=== PATIENT | female | born 1980 | race Caucasian/White ===

== ENCOUNTER 2016-10-05 05:54 | Day surgery (SDC) | payer OTHER ==
[~2016-10-05] VITALS: Ht 165.1 cm; Wt 61.2 kg
--- NOTE | ~2016-10-05 | O ---
[facility] [place] [address] OPERATIVE REPORT Name: NINFA MEDRANO Yamila Room #: 150-3 [facility]..#: [id number] Admission: 10/05/16 Attend Phys: Tigre Lopez MD Discharge: Date of : 78 Report #: [id number] THIS REPORT FOR: //name// CC: FAM unknown Tigre Lopez DATE OF SERVICE: 10/05/2016 PREOPERATIVE DIAGNOSIS: Left maxillary sinusitis with nasal polyposis. POSTOPERATIVE DIAGNOSIS: Left maxillary sinusitis with nasal polyposis. PROCEDURE: 1. Endoscopic left nasal antral window with content removal. 2. Endoscopic left nasal polypectomies. SURGEON: Tigre Lopez M.D. ANESTHESIA: General LMA. INDICATIONS: See H and P. FINDINGS: Large polyp was essentially obstructing in the posterior left nasal passageway of nasal choana. This polyp had its base within the maxillary ostia. Within the maxillary sinus itself was a substantial amount of polypoid mucosa along with what appeared to be a fungal debris. The mucosa of the sinus once her polyps removed is unremarkable. TECHNIQUE: After obtaining consent, she was brought to the operating suite, appropriate time out was performed. General LMA anesthesia was obtained, the bed was turned 90 degrees. Nose was prepped and draped in usual sterile fashion. Cottonoids with Afrin were placed in the left naris for vasoconstriction. A 2 mL of 1% Xylocaine 1:100,000 epinephrine was injected on the anterior face of the left middle turbinate and the left lateral nasal wall of the uncinate process. Cottonoids were removed. A 0 degree scope was used to intubate the nares. The left middle turbinate was medialized with a [place] and the large polyp was identified. The uncinate process was brought forward with double ball and the uncinate process removed with a side biter and a 12 degree microdebrider blade fully exposing the polyp stalk. The stalk was then amputated with a 12 degree microdebrider blade and the polyp that was within the nasal cavity was then grasped with forceps and removed through the nasal passageway and sent for pathology. Switching to a 30- and a 70-degree scope, it was obvious there was still substantial amount of polyposis within the maxillary sinus. Switching to a red 40 blade, the polyps within the maxillary sinus were removed as much as [facility] [address] [place] [address] OPERATIVE REPORT Name: NINFA MEDRANO Room #: 150-3 [facility].#: [id number] Admission: 10/05/16 Attend Phys: Tigre Lopez MD Discharge: Date of : 78 Report #: [id number]. At that point, we did notice the appearance of what appeared to be some fungal debris within the base of the maxillary sinus, which was suctioned free with a curved suction and then irrigated the maxillary sinus and the mucosa otherwise appeared to be unremarkable. It should be noted I did enlarge the antrostomy slightly inferiorly and anteriorly to allow access to the limits of the maxillary sinus. Switching back to 0 degree scope, the nasal passage was inspected and found to be healthy. There was no active bleeding noted. A single piece of PosiSep was then placed between the middle turbinate and the lateral nasal wall inflated with saline. Nasopharynx was suctioned free of secretion. She was sent to recovery in stable condition. ESTIMATED BLOOD LOSS: Minimal. By: [id number] Tigre Lopez MD /nt
--- NOTE | ~2016-10-05 | EKG ---
[address] [address] ELECTROCARDIOGRAM REPORT Name: NINFA MEDRANO Room #: 150-3 [facility]#: [id number] Admission: 10/05/16 Attend Phys: Tigre Lopez MD Discharge: Date of : 78 Report #: [id number] THIS REPORT FOR: //name// [facility] Test Date: 2016-10-05 Test Time: 08:52:21 Pat Name: NINFA MEDRANO Department: Room: Gender: F Web Site Specialist: YARELIS : 1980 Requested By: Tigre Lopez Order Number: [id number] MD: Duy Bridges Measurements Intervals [place] Rate: 57 P: 54 CO: 151 QRS: 34 QRSD: 86 T: 9 QT: 408 QTc: 398 Interpretive Statements Sinus rhythm No previous ECG available for comparison Electronically Signed On 10-08-2016 8:25:33 CDT by Duy Bridges [email or web address] <ELECTRONICALLY SIGNED> By: Duy Bridges MD 10/08/16 0825 [id number] [id number] Duy Bridges MD /ALEC
--- NOTE | ~2016-10-05 | S ---
[facility] [address] [place] [address] SURGICAL PATH RPT PROCEDURE Name: NINFA MEDRANO Room #: 150-3 [facility] M.R.#: [id number] Admission: 10/05/16 Date of : 78 Discharge: Report #: [id number] Path Case #: [id number] PATHOLOGY REPORT DRAFT COLLECTION DATE: 10/05/2016 RECEIVED DATE: 10/05/2016 SPECIMEN(S) RECEIVED: A.Nasal polyp
--- NOTE | ~2016-10-05 | H ---
[facility] [place] [address] HISTORY AND PHYSICAL Name: NINFA MEDRANO Yamila Room #: 150-3 [facility]..#: [id number] Admission: 10/05/16 Attend Phys: Tigre Lopez MD Discharge: Date of : 78 Report #: [id number] THIS REPORT FOR: //name// CC: FAM unknown Tigre Lopez DATE OF SERVICE: 10/04/2016 ANTICIPATED DATE OF SURGERY: 10/05/2016. CHIEF COMPLAINT: Nasal obstruction with nasal polyposis. HISTORY OF PRESENT ILLNESS: The patient is a 36-year-old female who presented in August with over a 1-month history of nasal congestion on the left side along with left-sided nasal obstruction, left-sided facial pain and pressure without any relief with several rounds of antibiotics or a steroid Dosepak. She also may have started with an upper respiratory ailment. Examination at that time intranasally demonstrated a large left middle meatal polyp, essentially coming out of the middle meatus and obstructing the nasal passageway. Given the findings, I reviewed the options with her of oral and nasal steroids, surgical intervention and I discussed the risks, benefits, expected outcomes and alternatives of each one of these as well as restrictions of any postoperative care and necessity for postoperative care. After discussion, she agreed to proceed forward with surgical intervention. Plan will be for left endoscopic maxillary antrostomy with polyp removal, endoscopic polypectomy and possibly limited ethmoidectomy. ALLERGIES TO MEDICATIONS: Includes LATEX. MEDICATIONS ON ADMISSION: Fluconazole 150 mg tablet as needed. PAST MEDICAL AND SURGICAL HISTORY: Notable for previous extraction of wisdom teeth, knee surgery and history of previous essential hypertension, not presently treated. FAMILY HISTORY: Notable for diabetes and heart disease. REVIEW OF SYSTEMS: Presently negative for any GI, or cardiovascular issues. PHYSICAL EXAMINATION: VITAL SIGNS: Height of 5 feet 5 inches, weight 130 pounds. HEENT: As noted above in the nares, oral cavity and oropharynx. NECK: Normal with palpation. CARDIOVASCULAR: Regular rhythm, regular rate. ASSESSMENT: History of left-sided nasal airway obstruction with polyposis and [facility] [address] [place] [address] HISTORY AND PHYSICAL Name: NINFA MEDRANO Yamila Room #: 150-3 [facility]#: [id number] Admission: 10/05/16 Attend Phys: Tigre Lopez MD Discharge: Date of : 78 Report #: [id number] sinusitis. PLAN: Plan will be for the above-mentioned procedure. <ELECTRONICALLY SIGNED> By: Tigre Lopez MD 10/05/16 0728 [id number] [id number] Tigre Lopez MD /nt
[~2016-10-05 05:54] MED LIST: COSAMIN DS CAP1 EACH PO; NADOLOL 20 MG T20 MG PO; ZANTAC 150MG T150 MG PO
[2016-10-05 09:30] VITALS: BP 117/73
[2016-10-05 13:16] VITALS: BP 117/73
== END 2016-10-05 14:00 | disposition home or self-care (01) ==
LOC: TBA 05:54 → OR 05:54 → TBA 05:55 → OR 09:09
DX: J32.0 Chronic maxillary sinusitis (principal); J33.9 Nasal polyp, unspecified; I10 Essential (primary) hypertension; K21.9 Gastro-esophageal reflux disease without esophagitis; Z87.891 Personal history of nicotine dependence; Z98.890 Other specified postprocedural states
CPT/HCPCS: 50010; 50101; 50286; 50386; 50398; 50426; 50573; 53336; 56635; 62110; 62900; 70005